=== PATIENT | male | born 1985 | race Caucasian/White ===

== ENCOUNTER 2025-05-24 18:05 | Emergency (ER) | payer SELFPAY ==
[~2025-05-24] VITALS: Ht 177.8 cm; Wt 65.8 kg
[2025-05-24 18:31] VITALS: BP 130/72; TEMP 99.7; O2SAT 97
[2025-05-24] MEDS ORDERED: LIDOCAINE 1%-EPI 1:100,000 20 ML VIAL ONE (18:59)
[2025-05-24] MEDS ORDERED: TDAP [DIPH/PERTUSSIS/TET] 0.5 ML VIAL IM ONE (18:59)
[2025-05-24] MEDS: TDAP [DIPH/PERTUSSIS/TET] 0.5 ML VIAL IM ONE (19:04)
[2025-05-24] MEDS: LIDOCAINE 1%-EPI 1:100,000 20 ML VIAL TP ONE (19:04)
== END 2025-05-24 21:04 | disposition home or self-care (01) ==
LOC: ER 18:35
DX: S01.81XA Laceration without foreign body of other part of head, initial encounter (principal); W26.8XXA Contact with other sharp object(s), not elsewhere classified, initial encounter; Y93.89 Activity, other specified; Y92.810 Car as the place of occurrence of the external cause; Y99.8 Other external cause status
CPT/HCPCS: 12013; 90471; 90715; 99283; A6403; J3490